=== PATIENT | male | born 1995 | race African-American/Black ===

== ENCOUNTER 2021-06-24 20:54 | Emergency (ER) | payer MEDICAID ==
[~2021-06-24] VITALS: Ht 190.5 cm; Wt 90.0 kg
[2021-06-24 20:56] VITALS: BP 132/84
== END 2021-06-24 21:48 | disposition left against medical advice (07) ==
LOC: ER 20:54
DX: F22 Delusional disorders (principal)
CPT/HCPCS: 99283